=== PATIENT | male | born 1955 | race Caucasian/White ===

== ENCOUNTER 2018-04-02 05:31 | Day surgery (SDC) | payer OTHER ==
[~2018-04-02] VITALS: Ht 162 cm; Wt 66.2 kg
--- NOTE | ~2018-04-02 | EKG ---
[address] [address] ELECTROCARDIOGRAM REPORT Name: FULTONANGEL Josiane Room #: 209-P [facility]#: [id number] Admission: 04/02/18 Attend Phys: Yossi Cutler MD Discharge: Date of : 51 Report #: [id number] THIS REPORT FOR: //name// [facility] Test Date: 2018-04-02 Test Time: 16:33:01 Pat Name: ANGEL FULTON Department: Room: 150 1 Gender: M Surgeon Chief: Gustabo ORNELAS : 1955 Requested By: Yossi Cutler Order Number: [id number] MD: Nabil Frankel Measurements Intervals [place] Rate: 98 P: 57 OR: 152 QRS: -8 QRSD: 75 T: 33 QT: 333 QTc: 426 Interpretive Statements Sinus rhythm Anterior infarct, old Baseline wander in lead(s) V5 No previous ECG available for comparison Electronically Signed On 04-02-2018 17:16:01 CDT by Nabil Frankel [email or web address] <ELECTRONICALLY SIGNED> By: Nabil Frankel MD, [facility] 04/02/18 1716 D: 05/1632 32 Nabil Frankel MD, FACC /EPI
--- NOTE | ~2018-04-02 | EKG ---
[address] [address] ELECTROCARDIOGRAM REPORT Name: ANGEL FULTON Josiane Room #: 209-P [facility]#: [id number] Admission: 04/02/18 Attend Phys: Yossi Cutler MD Discharge: Date of : 51 Report #: [id number] THIS REPORT FOR: //name// [facility] Test Date: 2018-04-02 Test Time: 14:03:00 Pat Name: ANGEL FULTON Department: Room: 150 1 Gender: M Crown Blocker: LYNN : 1955 Requested By: Yossi Cutler Order Number: [id number] MD: Nabil Frankel Measurements Intervals [place] Rate: 150 P: [place]: QRS: 48 QRSD: 83 T: 13 QT: 279 QTc: 441 Interpretive Statements Atrial fibrillation Baseline wander in lead(s) V4,V5,V6 No previous ECG available for comparison Electronically Signed On 04-02-2018 17:12:53 CDT by Nabil Frankel [email or web address] <ELECTRONICALLY SIGNED> By: Nabil Frankel MD, [facility] 04/02/18 1712 1403 1403 Nabil Frankel MD, FACC /EPI
--- NOTE | ~2018-04-02 | 2DMMODE ---
[facility] [address] [place] [address] 2 D/M-MODE ECHOCARDIOGRAM Name: ANGEL FULTON [facility] #: 209[id number] Admission: 04/02/18 Attend Phys: Yossi Cutler, Discharge: Date of : 51 Date of Service: 04/02/18 1620 Report #: [id number] THIS REPORT FOR: //name// APPROVED REPORT Study performed: 04/02/2018 15:22:33 EXAM: Comprehensive 2D, Doppler, and color-flow Echocardiogram Patient Location: Bedside Room #: 209 Status: routine BSA: 1.72 HR: 98 bpm BP: 187/82 mmHg Other Information Study Quality: Adequate Technically limited study due to lung disease. Indications Atrial Fibrillation Hypertension/HDD 2D Dimensions RVDd: 26.31 mm LVEF(%): 51.48 (>50%) IVSd: 13.03 (7-11mm) LVOT Diam: 19.14 (18-24mm) LVDd: 41.18 mm PWd: 12.64 (7-11mm) Ascending Ao: 33.38 (22-36mm) LVDs: 30.48 (25-40mm) Aortic Root: 32.79 mm IVC: 16.00 mm Carrillo's LVEF: 51.48 % Volumes Left Atrial Volume (Systole) Single Plane 4CH: 16.71 mL Single Plane 2CH: 29.76 mL LA ESV Index: 16.00 mL/m2 Aortic Valve AoV Peak Drew.: 1.11 m/s AO Peak Gr.: 5.08 mmHg LVOT Max P.43 mmHg LVOT Max V: 1.05 m/s ADRIAN Vmax: 2.73 cm2 Mitral Valve E/A Ratio: 0.6 [facility] [place] [address] 2 D/M-MODE ECHOCARDIOGRAM Name: ANGEL FULTON Room #: 209-P [facility]..#: [id number] Admission: 04/02/18 Attend Phys: Yossi Cutler, Discharge: Date of : 51 Date of Service: 04/02/18 1620 Report #: [id number] MV Decel. Time: 118.84 ms MV E Max Drew.: 0.64 m/s MV A Drew.: 1.05 m/s MV PHT: 34.46 ms IVRT: 89.97 ms Pulmonary Valve PV Peak Drew.: 1.10 m/s PV Peak Gr.: 4.88 mmHg Pulmonary Vein P Vein S: 0.70 m/s P Vein A: 0.36 m/s P Vein D: 0.43 m/s P Vein A Dur.: 131.5 msec P Vein S/D Ratio: 1.63 Tricuspid Valve RAP Estimate: 5.00 mmHg Left Ventricle The left ventricle is normal size. Mild concentric left ventricular hypertrophy. The left ventricular systolic function is normal. The left ventricular ejection fraction is within the normal range. LVEF is 55%. Transmitral Doppler flow pattern suggests impaired LV relaxation. Right Ventricle The right ventricle is normal size. The right ventricular systolic function is normal. Atria The left atrium size is normal. The right atrium size is normal. Aortic Valve The aortic valve is normal in structure. No aortic regurgitation is present. There is no aortic valvular stenosis. Mitral Valve Mitral valve leaflets are mildly thickened. There is no mitral valve regurgitation noted. No evidence of mitral valve stenosis. Tricuspid Valve The tricuspid valve is normal in structure. There is no tricuspid valve regurgitation noted. Unable to assess PA pressure. Pulmonic Valve Pulmonic valve is not well visualized. There is no pulmonic valvular [address] [address] 2 D/M-MODE ECHOCARDIOGRAM Name: ANGEL FULTON Room #: 209-P [facility]#: [id number] Admission: 04/02/18 Attend Phys: Yossi Cutler, Discharge: Date of : 51 Date of Service: 04/02/18 1620 Report #: [id number] regurgitation. Great Vessels The aortic root is normal in size. IVC is normal in size and collapses >50% with inspiration. Pericardium There is no pericardial effusion. <Conclusion> The left ventricle is normal size. Mild concentric left ventricular hypertrophy. The left ventricular systolic function is normal. Transmitral Doppler flow pattern suggests impaired LV relaxation. The right ventricle is normal size. The left atrium size is normal. The aortic valve is normal in structure. Mitral valve leaflets are mildly thickened. There is no pericardial effusion. <ELECTRONICALLY SIGNED> By: Lio Smieon MD 04/02/18 1620 162 162 Lio Simeon MD /INF
[~2018-04-02 05:31] MED LIST: CENTRUM SILVER1 EAC2 PO; CRESTOR40 MG PO; LOPRESSOR50 PO; PROTONIX40 M1 PO
[2018-04-02 13:05] LABS: HEMATOCRIT 43.3 % (42.0-52.0); HEMOGLOBIN 15.2 gm/dL (14.0-18.0); MCH 35.9 pg (26.0-34.0); MCV 102.3 fL (80.0-100.0); RBC 4.23 mil/uL (4.50-6.00); RDW 13.7 % (10.5-14.5); WBC 12.7 thou/uL (4.0-11.0)
[2018-04-02 13:06] VITALS: BP 187/82
[2018-04-02 13:14] LABS: CALCIUM 8.8 mg/dL (8.5-10.1); CREATININE 0.6 mg/dL (0.7-1.3); POTASSIUM 3.8 mmol/L (3.5-5.1)
[2018-04-02 14:38] LABS: HEMATOCRIT 43.1 % (42.0-52.0); MCH 35.7 pg (26.0-34.0); MCHC 34.8 g/dL (28.0-37.0); MCV 102.6 fL (80.0-100.0); RBC 4.2 mil/uL (4.50-6.00); RDW 13.3 % (10.5-14.5); WBC 12.2 thou/uL (4.0-11.0)
[2018-04-02 14:46] LABS: ANION GAP 13 mmol/L (7-16); BUN 7 mg/dL (7-18); CALCIUM 8.9 mg/dL (8.5-10.1); CHLORIDE 95 mmol/L (98-107); CO2 27 mmol/L (21-32); CREATININE 0.7 mg/dL (0.7-1.3); GLUCOSE 72 mg/dL (74-106); POTASSIUM 3.8 mmol/L (3.5-5.1); SODIUM 135 mmol/L (136-145)
[2018-04-02 14:54] LABS: ALBUMIN 3.7 g/dL (3.4-5.0); SGOT 67 U/L (15-37); SGPT 72 U/L (30-65); TOTAL BILIRUBIN 0.8 mg/dL (<0.1-1.0); TOTAL PROTEIN 7.3 g/dL (6.4-8.2); TROPONIN-I < 0.04 ng/mL (<0.06)
[2018-04-02 17:30] VITALS: BP 177/89
[2018-04-02 20:36] VITALS: BP 152/67
[2018-04-02 23:21] VITALS: BP 157/62
[2018-04-03 04:45] LABS: ABSOLUTE NEUTROPHILS 6.6 thou/uL (1.4-8.2); BASOPHILS 0.2 % (0.0-2.0); EOSINOPHILS 0.1 % (0.0-3.0); HEMATOCRIT 41.4 % (42.0-52.0); HEMOGLOBIN 14.5 gm/dL (14.0-18.0); LYMPHOCYTES 9.9 % (24.0-44.0); MCH 35.7 pg (26.0-34.0); MCHC 34.9 g/dL (28.0-37.0); MCV 102.4 fL (80.0-100.0); MONOCYTES 3.9 % (1.0-8.0); PLATELET COUNT 163 thou/uL (150-400); POLYS 85.9 % (36.0-66.0); RBC 4.05 mil/uL (4.50-6.00); RDW 13.3 % (10.5-14.5); WBC 7.6 thou/uL (4.0-11.0)
[2018-04-03 04:47] VITALS: BP 155/75
[2018-04-03 04:54] LABS: CALCIUM 8.9 mg/dL (8.5-10.1); CREATININE 0.5 mg/dL (0.7-1.3); MAGNESIUM 1.8 mg/dL (1.8-2.4); POTASSIUM 3.4 mmol/L (3.5-5.1)
[2018-04-03 05:04] LABS: CHOLESTEROL 139 mg/dL (<200); HDL CHOLESTEROL 95 mg/dL (>40); LDL CHOLESTEROL 38 mg/dL (<100); SERUM ASSESSMENT Clear; TC:HDL 1.5 Ratio (Not establshd); TRIGLYCERIDE 33 mg/dL (<150); VLDL 7 mg/dL (<40)
[2018-04-03 08:35] VITALS: BP 160/75
[2018-04-03 12:00] VITALS: BP 165/71
[2018-04-03] MEDS ORDERED: LISINOPRIL5 MG PO (14:27)
[2018-04-03] MEDS ORDERED: VITAMIN B-12500 MCG PO (14:27)
[2018-04-03] MEDS ORDERED: ASPIRIN325 PO (14:27)
[2018-04-03 14:43] VITALS: BP 165/71
[2018-04-18] MEDS ORDERED: ALLEGRA ALLERGY60 MG PO (08:12)
[2018-04-18] MEDS ORDERED: SYSTANE ULTRA 010 ML OPHTHALMIC (08:13)
[2018-04-18] MEDS ORDERED: ASPIRIN325 PO (08:33)
[2018-04-18] MEDS ORDERED: LISINOPRIL10 MG PO (08:34)
== END 2018-04-03 16:25 | disposition home or self-care (01) ==
LOC: TBA 05:31 → OR 05:31 → 2N 15:41 → OR 04-03 16:25
PROVIDERS: Anesthesiology; Nurse Practitioner; Ophthalmology
DX: H02.834 Dermatochalasis of left upper eyelid (principal); H02.831 Dermatochalasis of right upper eyelid; Z53.8 Procedure and treatment not carried out for other reasons; I48.91 Unspecified atrial fibrillation; E78.5 Hyperlipidemia, unspecified; I11.9 Hypertensive heart disease without heart failure; Z88.8 Allergy status to other drugs, medicaments and biological substances; K21.9 Gastro-esophageal reflux disease without esophagitis; F17.210 Nicotine dependence, cigarettes, uncomplicated; Z79.82 Long term (current) use of aspirin; Z98.890 Other specified postprocedural states; Z79.899 Other long term (current) drug therapy
CPT/HCPCS: 10797; 50010; 50101; 50386; 50398; 51636; 56531; 62110; 62850; 70005

== ENCOUNTER 2018-04-19 05:24 | Day surgery (SDC) | payer OTHER ==
[~2018-04-19] VITALS: Ht 162.6 cm; Wt 63.5 kg
--- NOTE | ~2018-04-19 | O ---
[facility] [place] [address] OPERATIVE REPORT Name: ANGEL FULTON Room #: 150-3 [facility].#: [id number] Admission: 04/19/18 Attend Phys: Yossi Cutler MD Discharge: Date of : 51 Report #: [id number] THIS REPORT FOR: //name// CC: Angel Cutler DATE OF SERVICE: 04/19/2018 SURGEON: Yossi Cutler M.D. COAL DELIVERER: None. PREOPERATIVE DIAGNOSIS: Bilateral upper lid dermatochalasia with superior visual field defect. POSTOPERATIVE DIAGNOSIS: Bilateral upper lid dermatochalasia with superior visual field defect. OPERATION PERFORMED: Bilateral upper lid functional blepharoplasty. ANESTHESIA: Local with IV sedation. COMPLICATIONS: None. INDICATIONS FOR SURGERY: This patient has acquired upper lid dermatochalasia with superior visual field loss both eyes because of excessive upper lid tissues to include skin and fat. Visual field testing demonstrates dense superior visual defects. Retesting with the upper lid elevated shows an improvement in visual field loss of over 30% and in excess of 12 degrees. The current procedures are undertaken in order to improve the patient's visual function. Informed consent was obtained to include but not limited to the loss of vision, bleeding, infection, scarring, failure to improve the problem and need for further surgery. DESCRIPTION OF OPERATION: The patient was taken to the operating room, where 2% Xylocaine with epinephrine mixed with equal parts of 0.75% Marcaine with Wydase was administered transcutaneously to each upper lid. The patient was then prepped and draped in the usual sterile fashion and a skin-marking pen was then utilized to outline an upper lid crease that was symmetrical on each side. Graefe forceps were then used to quantitate the redundant upper lid skin and it was similarly outlined. The incisions were then made with Estrellita scissors and a skin-muscle flap removed from each side with high-temp cautery. Hemostasis was achieved with the monopolar cautery as it was throughout the case. The [address] [address] OPERATIVE REPORT Name: ANGEL FULTON Room #: 150-3 [facility]#: [id number] Admission: 04/19/18 Attend Phys: Yossi Cutler MD Discharge: Date of : 51 Report #: [id number] orbital septum was then identified and the central and medial fat pads were inspected. The redundant soft tissue was then sculpted with the monopolar cautery. The upper lid crease was then reformed with tightening of the pretarsal orbicularis muscle. The upper lid crease was then further reformed with multiple interrupted 6-0 chromic sutures. The skin was then closed with a running 6-0 plain gut suture. The wound was then cleaned and dressed with ophthalmic antibiotic ointment and a nonstick dressing. The patient was transported to the recovery area, where cold compresses were applied, having tolerated the procedure well with no anesthetic or operative complications being noted. By: [id number] Yossi Cutler MD /nt
[~2018-04-19 05:24] MED LIST changes: +ALLEGRA ALLERGY60 MG PO; +ASPIRIN325 PO; +LISINOPRIL10 MG PO; +LISINOPRIL5 MG PO; +SYSTANE ULTRA 010 ML OPHTHALMIC; +VITAMIN B-12500 MCG PO
[2018-04-19 09:48] VITALS: BP 160/73
== END 2018-04-19 11:55 | disposition home or self-care (01) ==
LOC: OR 05:24 → TBA 05:25 → OR 11:55
DX: H02.834 Dermatochalasis of left upper eyelid (principal); H02.831 Dermatochalasis of right upper eyelid; H53.462 Homonymous bilateral field defects, left side; H53.461 Homonymous bilateral field defects, right side; I10 Essential (primary) hypertension; E78.5 Hyperlipidemia, unspecified; K21.9 Gastro-esophageal reflux disease without esophagitis; F17.210 Nicotine dependence, cigarettes, uncomplicated; Z98.890 Other specified postprocedural states; Z88.8 Allergy status to other drugs, medicaments and biological substances; Z79.82 Long term (current) use of aspirin; Z79.899 Other long term (current) drug therapy
CPT/HCPCS: 50010; 50101; 50386; 50398; 51636; 56531; 62110; 62850; 70005